=== PATIENT | female | born 1990 | race Caucasian/White ===

== ENCOUNTER 2018-02-07 12:59 | Emergency (ER) | payer OTHER ==
[~2018-02-07] VITALS: Ht 165.1 cm; Wt 68.0 kg
== END 2018-02-07 14:05 | disposition home or self-care (01) ==
LOC: ER 12:59
DX: R22.0 Localized swelling, mass and lump, head (principal); T39.015A Adverse effect of aspirin, initial encounter; Y92.89 Other specified places as the place of occurrence of the external cause

== ENCOUNTER 2022-01-28 10:30 | Day surgery (SDC) | payer OTHER ==
[2022-01-28] MEDS ORDERED: MORGIDOX100 MG PO (17:46)
[2022-01-28] MEDS ORDERED: Tylenol #3 PO (17:46)
== END 2022-01-28 23:25 | disposition home or self-care (01) ==
LOC: CIR.AMB 10:30
PROVIDERS: ATTEND Obstetrics & Gynecology
DX: D25.0 Submucous leiomyoma of uterus (principal); N72 Inflammatory disease of cervix uteri; Z20.822 Contact with and (suspected) exposure to COVID-19; E78.00 Pure hypercholesterolemia, unspecified; Z88.6 Allergy status to analgesic agent

== ENCOUNTER 2022-10-21 10:45 | Day surgery (SDC) | payer OTHER ==
[~2022-10-21 10:45] MED LIST: MORGIDOX100 MG PO; Tylenol #3 PO
[2022-10-21] MEDS ORDERED: MORGIDOX100 MG PO (15:27)
[2022-10-21] MEDS ORDERED: Tylenol #3 PO (15:27)
== END 2022-10-21 18:00 | disposition home or self-care (01) ==
LOC: CIR.AMB 10:45
PROVIDERS: ATTEND Obstetrics & Gynecology
DX: N92.0 Excessive and frequent menstruation with regular cycle (principal); N84.0 Polyp of corpus uteri; D25.0 Submucous leiomyoma of uterus; Z20.822 Contact with and (suspected) exposure to COVID-19; Z88.6 Allergy status to analgesic agent

== ENCOUNTER 2023-04-21 06:58 | Day surgery (SDC) | payer OTHER ==
[2023-04-21] MEDS ORDERED: MORGIDOX100 MG PO (09:59)
[2023-04-21] MEDS ORDERED: CONZIP100 MG PO (09:59)
== END 2023-04-21 11:50 | disposition home or self-care (01) ==
LOC: CIR.AMB 06:58
PROVIDERS: ATTEND Obstetrics & Gynecology
DX: O02.1 Missed abortion (principal); O72.2 Delayed and secondary postpartum hemorrhage; Z88.6 Allergy status to analgesic agent; Z20.822 Contact with and (suspected) exposure to COVID-19

== ENCOUNTER 2023-11-02 06:31 | Day surgery (SDC) | payer OTHER ==
[2023-11-01 10:29] LABS: HEMATOCRIT 38.9 % (36.0-45.00); HEMOGLOBIN 13.1 g/dL (12.0-15.00); MEAN CELL VOLUME 85.5 fL (80.00-100.00); MEAN CORPUSCULAR HEMOGLOBIN 28.9 pg (27.00-32.0); MEAN CORPUSCULAR HGB CONC 33.8 g/dl (32.0-36.0); PLATELET COUNT 202 K/uL (150-450); RED BLOOD COUNT 4.55 M/uL (4.00-6.00); RED CELL DISTRIBUTION WIDTH 14.2 % (11.5-14.5)
[2023-11-01 11:02] LABS: INR 0.99; PARTIAL THROMBOPLASTIN TIME 28.9 SECONDS (22.0-34.0); PROTHROMBIN TIME 10.4 SECONDS (9.0-11.5)
[2023-11-01 12:02] LABS: ALBUMIN 3.9 gm/dL (3.4-5.0); BILIRUBIN TOTAL 0.39 mg/dL (0.3-1.2); CREATININE SERUM 0.56 mg/dL (0.55-1.02); GFR 123.92; GLOBULINA 3.4 G/DL (2.4-3.5); POTASSIUM 4.33 mEq/L (3.5-5.1); TOTAL PROTEIN 7.3 gm/dL (6.4-8.2)
[2023-11-01 13:35] LABS: RH POSITIVE
[~2023-11-02 06:31] MED LIST changes: +CONZIP100 MG PO
[2023-11-02] MEDS ORDERED: POVIDONE-IODINE 118 ML BOTT TOP ONE ×2 (09:28→13:15)
[2023-11-02] MEDS ORDERED: MORPHINE SULFATE 4 MG/ML VIAL IV PRN (13:00)
[2023-11-02] MEDS ORDERED: PROMETHAZINE HCL 50 MG/ML AMPUL IM ONE (13:00)
[2023-11-02] MEDS ORDERED: DOXYCYCLINE HYCLATE 100 MG CAPSULE PO ONE (13:15)
== END 2023-11-02 15:00 | disposition home or self-care (01) ==
LOC: CIR.AMB 06:31
PROVIDERS: ATTEND Obstetrics & Gynecology
DX: O02.1 Missed abortion (principal); O72.2 Delayed and secondary postpartum hemorrhage; Z88.6 Allergy status to analgesic agent

== ENCOUNTER 2023-12-28 08:39 | Outpatient (CLI) | payer OTHER | END 2023-12-28 08:47 | disposition home or self-care (01) | LOC: RX STUDY 08:39 | PROVIDERS: ATTEND Obstetrics & Gynecology Reproductive Endocrinology | DX: N93.0 Postcoital and contact bleeding (principal) ==

== ENCOUNTER 2025-06-10 12:11 | Outpatient (CLI) | payer OTHER ==
[2025-06-11] MEDS ORDERED: PRENATAL + DHA1 EAC1 PO (23:10)
[2025-06-11] MEDS ORDERED: HIERRO PO (23:11)
[2025-06-11] MEDS ORDERED: VITAMIN D PO (23:12)
== END 2025-06-10 13:12 | disposition home or self-care (01) ==
LOC: NST 12:11
PROVIDERS: ATTEND Obstetrics & Gynecology
DX: Z34.83 Encounter for supervision of other normal pregnancy, third trimester (principal)

== ENCOUNTER 2025-06-11 22:35 | Outpatient (CLI) | payer OTHER ==
[2025-06-11 22:12] VITALS: BP 123/87
[2025-06-11] MEDS ORDERED: ACETAMINOPHEN 500 MG GEL..CAP PO PRN (22:45)
[2025-06-11] MEDS ORDERED: PRENATAL + DHA1 EAC1 PO (23:10)
[2025-06-11 23:11] LABS: BASO % 0.6 % (0.1-1.2); EOS # 0.06 (0.04-0.54); EOS % 0.6 % (0.7-7.0); LYMPH # 1.23 (1.18-3.74); LYMPH % 12.8 % (19.3-53.1); MEAN PLATELET VOLUME 12.00 fl (9.4-12.4); MONO # 0.96 (0.24-0.82); MONO % 10.0 % (4.7-12.5); NEUT # 7.25 (1.56-6.13); NEUT % 75.5 % (34.0-71.1); RED CELL DISTRIBUTION WIDTH 14.8 % (11.6-14.4); URINE APPEARANCE Cloudy; URINE BILIRRUBIN Negative (NEGATIVE); URINE BLOOD Negative; URINE COLOR Yellow; URINE GLUCOSE Negative (NEGATIVE); URINE KETONE 15 (NEGATIVE); URINE LEUKOCYTE Negative; URINE NITRATE Negative; URINE PROTEIN Negative (NEGATIVE); URINE UROBILINOGEN 0.2 E.U./dl
[2025-06-11] MEDS ORDERED: HIERRO PO (23:11)
[2025-06-11] MEDS ORDERED: VITAMIN D PO (23:12)
[2025-06-11 23:15] LABS: URINE BACTERIA 8856.9 uL (0.0-1933); URINE EPITHELIAL CELLS 39.6 uL (0.0-38.8); URINE RBC 4.9 uL (0.0-20.8); URINE WBC 151.0 uL (0.0-23.2)
[2025-06-11 23:48] LABS: INR 0.96
[2025-06-11 23:53] LABS: ALT/SGPT 13.0 U/L (12-78); AST/SGOT 12.0 U/L (15-37); BILIRUBIN TOTAL 0.45 mg/dL (0.3-1.2); BUN CREA RATIO 17.0 (7.0-25.0); CREATININE SERUM 0.65 mg/dL (0.55-1.02); GFR 103.72; GLOBULINA 3.1 G/DL (2.4-3.5); GLUCOSE FASTING 75.0 mg/dL (65-100); OSMOLALITY SERUM 281.0 MOSM/KG (275-295)
[2025-06-12] VITALS: BP 135/84
[2025-06-12 00:48] LABS: URINE CAST 0.43 uL (0.0-1.40)
[2025-06-12 03:20] VITALS: BP 113/71
[2025-06-12 07:56] VITALS: BP 125/75; O2SAT 97
[2025-06-12 09:43] VITALS: BP 125/75
== END 2025-06-12 09:47 | disposition home or self-care (01) ==
LOC: OBS/DEL 22:35
PROVIDERS: ATTEND Obstetrics & Gynecology Gynecology
DX: O26.893 Other specified pregnancy related conditions, third trimester (principal); Z3A.35 35 weeks gestation of pregnancy

== ENCOUNTER 2025-06-17 12:18 | Outpatient (CLI) | payer OTHER ==
[~2025-06-17 12:18] MED LIST changes: +HIERRO PO; +PRENATAL + DHA1 EAC1 PO; +VITAMIN D PO
== END 2025-06-17 13:10 | disposition home or self-care (01) ==
LOC: NST 12:18
PROVIDERS: ATTEND Obstetrics & Gynecology Gynecology
DX: Z34.83 Encounter for supervision of other normal pregnancy, third trimester (principal)

== ENCOUNTER 2025-06-20 08:53 | Outpatient (CLI) | payer OTHER | END 2025-06-20 10:13 | disposition home or self-care (01) | LOC: NST 08:53 | PROVIDERS: ATTEND Obstetrics & Gynecology Gynecology | DX: Z34.83 Encounter for supervision of other normal pregnancy, third trimester (principal) ==

== ENCOUNTER 2025-06-25 13:35 | Inpatient (IN) | payer OTHER ==
[~2025-06-25] VITALS: Ht 162.6 cm; Wt 87.5 kg
[2025-06-25 14:30] VITALS: BP 127/95
[2025-06-25] MEDS ORDERED: RINGERS SOLUTION,LACTATED 1,000 ML IV SCH (14:45)
[2025-06-25] MEDS ORDERED: MORPHINE SULFATE 4 MG/ML CARTRIDGE IV PRN (15:15)
[2025-06-25 15:32] VITALS: BP 132/89
[2025-06-25 15:57] LABS: BASO % 0.2 % (0.1-1.2); EOS # 0.04 (0.04-0.54); EOS % 0.3 % (0.7-7.0); LYMPH # 1.32 (1.18-3.74); LYMPH % 10.9 % (19.3-53.1); MEAN PLATELET VOLUME 12.80 fl (9.4-12.4); MONO # 1.27 (0.24-0.82); MONO % 10.5 % (4.7-12.5); NEUT # 9.40 (1.56-6.13); NEUT % 77.5 % (34.0-71.1); RED CELL DISTRIBUTION WIDTH 15.5 % (11.6-14.4)
[2025-06-25 16:05] LABS: URINE APPEARANCE Clear; URINE BILIRRUBIN Negative (NEGATIVE); URINE BLOOD Negative; URINE COLOR Yellow; URINE GLUCOSE Negative (NEGATIVE); URINE KETONE Negative (NEGATIVE); URINE LEUKOCYTE Negative; URINE NITRATE Negative; URINE PROTEIN Negative (NEGATIVE); URINE UROBILINOGEN 0.2 E.U./dl
[2025-06-25 16:08] LABS: URINE BACTERIA 1797.6 uL (0.0-1933); URINE EPITHELIAL CELLS 12.6 uL (0.0-38.8); URINE WBC 13.0 uL (0.0-23.2)
[2025-06-25 16:10] LABS: URINE CAST 0.00 uL (0.0-1.40); URINE RBC 0.8 uL (0.0-20.8)
[2025-06-25 16:13] LABS: COVID-19 AG NEGATIVE (NEGATIVE)
[2025-06-25 16:17] LABS: INR < 0.93
[2025-06-25 16:21] LABS: ALT/SGPT 14.0 U/L (12-78); AST/SGOT 16.0 U/L (15-37); BILIRUBIN TOTAL 0.46 mg/dL (0.3-1.2); BUN CREA RATIO 12.0 (7.0-25.0); CREATININE SERUM 0.6 mg/dL (0.55-1.02); GFR 113.76; GLOBULINA 3.7 G/DL (2.4-3.5); GLUCOSE FASTING 74.0 mg/dL (65-100); OSMOLALITY SERUM 276.0 MOSM/KG (275-295)
[2025-06-25] MEDS ORDERED: MISOPROSTOL 25 MCG TABLET VAG NR (16:45)
[2025-06-25 19:10] VITALS: BP 139/80; O2SAT 100
[2025-06-25 23:30] VITALS: BP 140/81
[2025-06-26] VITALS (8 sets, daily range): BP systolic 113–162; BP diastolic 84–98; O2SAT 0
[2025-06-26] MEDS ORDERED: OXYTOCIN 500 ML IV ONE (07:30)
[2025-06-26] MEDS ORDERED: CHLORHEXIDINE GLUCONATE 120 ML BOTTLE TOP ONE ×3 (15:14→18:30)
[2025-06-26] MEDS ORDERED: ERYTHROMYCIN BASE OPHT 1GM EACH TUBE OP ONE (15:14)
[2025-06-26] MEDS ORDERED: LIDOCAINE HCL 1% 10ML VIAL ONE (15:14)
[2025-06-26] MEDS ORDERED: OXYTOCIN 20 UNITS/1000ML RL PIGGYBAG IV ONE (15:14)
[2025-06-26] MEDS ORDERED: OXYTOCIN 1,000 ML IV SCH (16:00)
[2025-06-26] MEDS ORDERED: OXYTOCIN 1,000 ML IV ONE (18:30)
[2025-06-26] MEDS ORDERED: ACETAMINOPHEN 500 MG GEL..CAP PO PRN (18:30)
[2025-06-26] MEDS ORDERED: SENNA/DOCUSATE SODIUM 1 TAB TABLET PO SCH (21:00)
[2025-06-27 00:37] VITALS: BP 113/73
[2025-06-27 06:18] LABS: BASO % 0.2 % (0.1-1.2); EOS # 0.04 (0.04-0.54); EOS % 0.2 % (0.7-7.0); LYMPH # 2.05 (1.18-3.74); LYMPH % 12.1 % (19.3-53.1); MEAN PLATELET VOLUME 12.90 fl (9.4-12.4); MONO # 1.64 (0.24-0.82); MONO % 9.7 % (4.7-12.5); NEUT # 13.06 (1.56-6.13); NEUT % 77.3 % (34.0-71.1); RED CELL DISTRIBUTION WIDTH 15.7 % (11.6-14.4)
[2025-06-27 08:31] VITALS: BP 143/84
[2025-06-27] MEDS ORDERED: PNV,CALCIUM 72/IRON/FOLIC ACID 1 TAB TABLET PO SCH (09:00)
[2025-06-27] MEDS ORDERED: IRON FUM,PS/FOLIC/BCOMP,C NO.9 1 CAP CAPSULE PO SCH (09:00)
[2025-06-27 17:09] LABS: BASO % 0.3 % (0.1-1.2); EOS # 0.07 (0.04-0.54); EOS % 0.5 % (0.7-7.0); LYMPH # 2.15 (1.18-3.74); LYMPH % 14.0 % (19.3-53.1); MEAN PLATELET VOLUME 12.60 fl (9.4-12.4); MONO # 1.34 (0.24-0.82); MONO % 8.7 % (4.7-12.5); NEUT # 11.71 (1.56-6.13); NEUT % 76.0 % (34.0-71.1); RED CELL DISTRIBUTION WIDTH 15.8 % (11.6-14.4)
[2025-06-27 17:38] LABS: ALT/SGPT 14.0 U/L (12-78); AST/SGOT 21.0 U/L (15-37); BILIRUBIN TOTAL 0.26 mg/dL (0.3-1.2); BUN CREA RATIO 11.0 (7.0-25.0); CREATININE SERUM 0.53 mg/dL (0.55-1.02); GFR 131.27; GLOBULINA 3.3 G/DL (2.4-3.5); GLUCOSE FASTING 86.0 mg/dL (65-100); OSMOLALITY SERUM 284.0 MOSM/KG (275-295)
[2025-06-27] MEDS ORDERED: BISACODYL 5 MG TABLET.EC PO ONE (18:00)
[2025-06-27 19:20] VITALS: BP 143/80
[2025-06-28 01:58] VITALS: BP 142/85
[2025-06-28 08:20] VITALS: BP 121/86
== END 2025-06-28 13:00 | disposition home or self-care (01) | DRG 807 ==
LOC: LDR 13:35 → OB/GYN 06-26 21:20 → LDR 07-15 13:19
PROVIDERS: Obstetrics & Gynecology; ADMIT Obstetrics & Gynecology Gynecology; ATTEND Obstetrics & Gynecology Gynecology
PROC: 3E0P7VZ Introduction of Hormone into Female Reproductive, Via Natural or Artificial Opening (ICD-10-PCS; 2025-06-25)
PROC: 4A1HXCZ Monitoring of Products of Conception, Cardiac Rate, External Approach (ICD-10-PCS; 2025-06-25)
PROC: 10E0XZZ Delivery of Products of Conception, External Approach (ICD-10-PCS; principal; 2025-06-26)
PROC: 0KQM0ZZ Repair Perineum Muscle, Open Approach (ICD-10-PCS; 2025-06-26)
PROC: 3E033VJ Introduction of Other Hormone into Peripheral Vein, Percutaneous Approach (ICD-10-PCS; 2025-06-26)
DX: O70.1 Second degree perineal laceration during delivery (principal); Z37.0 Single live birth; Z3A.37 37 weeks gestation of pregnancy